=== PATIENT | male | born 1995 | race Caucasian/White ===

== ENCOUNTER 2020-09-21 10:13 | Outpatient (REF) | payer MEDICAID, SELFPAY ==
--- NOTE | 2020-09-21 | US_ITS ---
EXAMINATION: US ABDOMEN LIMITED CLINICAL INFORMATION: Elevation of liver transaminase levels. COMPARISON: None TECHNIQUE: Real-time imaging of the right upper quadrant abdominal viscera. FINDINGS: PANCREAS: Normal. LIVER: The liver is normal in size. The liver contour is normal. The liver is diffusely echogenic. No focal hepatic lesion. There is no intrahepatic biliary duct dilatation seen. GALLBLADDER: Normal. The gallbladder is physiologically distended without evidence of stones, sludge, polyps, wall thickening or pericholecystic fluid. COMMON BILE DUCT: Normal in caliber measuring 0.4 cm in diameter. RIGHT KIDNEY: Normal. No hydronephrosis. No renal calculi or focal parenchymal lesions. The kidney measures 10.9 cm in maximum dimension. FREE FLUID: None. US/US abdomen limited IMPRESSION: Diffusely echogenic liver. No focal lesion seen. Visualized pancreas, gallbladder, CBD and right kidney are unremarkable.
== END 2020-09-21 10:14 | disposition home or self-care (01) ==
LOC: HO.US 10:13
PROVIDERS: Visit Provider Nurse Practitioner Family
DX: R74.01 Elevation of levels of liver transaminase levels (principal)
CPT/HCPCS: 76705